=== PATIENT | female | born 1980 | race Caucasian/White ===

== ENCOUNTER 2018-05-21 18:40 | Observation (INO) ==
[2018-05-21] MEDS ORDERED: LORazepam 2 MG/1 ML VIAL IV STA ×2 (19:15→20:53)
[2018-05-21] MEDS ORDERED: ONDANSETRON 4 MG/2 ML VIAL IV STA (19:15)
[2018-05-21] MEDS ORDERED: SODIUM CHLORIDE 0.9% 1,000 ML IV STA (19:15)
[2018-05-21 20:13] LABS: Basophils % 0.2 % (0.0-0.8); Eosinophils % 0.1 % (0.00-10.9); Hematocrit 41.1 VOL% (35.7-47.0); Hemoglobin 13.8 GM/DL (12.0-16.0); Immature Granulocytes % 0.5 %; Immature Granulocytes Absolute 0.05 #; Lymphocytes # 0.2 10*3/uL (1.4-4.0); Lymphocytes % 2.2 % (21.3-54.2); Mean Corpuscular HGB Conc 33.6 GM/DL (32-36); Mean Corpuscular Hemoglobin 30 PG (27-34); Mean Corpuscular Volume 88.8 FL (87-102); Mean Platelet Volume 10.3 FL (9.6-12.0); Monocytes # 0.4 10*3/uL (0.11-0.8); Monocytes % 3.5 % (1.7-12.7); Neutrophils # 10.3 10*3/uL (1.4-7.4); Neutrophils % 93.5 % (38.7-73.9); Platelet Count 201 T/CUMM (130-400); Red Blood Count 4.63 MC/CUMM (3.8-5.5)
[2018-05-21 20:30] LABS: Calcium 8.1 MG/DL (8.5-10.1)
[2018-05-21 20:31] LABS: Bilirubin,Total 1.6 MG/DL (0.2-1.0); Osmolality,Calculated 283.3 MOS/KG (273-304); Potassium 3.5 MMOL/L (3.5-5.1)
[2018-05-21 20:36] LABS: Apearance,Urine CLEAR (Clear); Bacteria,Urine Occasional /HPF (Few); Bilirubin,Urine Negative (Negative); Blood, Urine Small mg/dL (Negative); Glucose,Urine (UA) Negative (Negative); Ketones,Urine 80 mg/dL (Negative); Mucus,Urine Occasional /LPF (Occasional); Nitrite,Urine Negative (Negative); Protein,Urine Negative; RBC,Urine 2 /HPF (0-4); Squamous Epithelial Cell,Urine Occasional /HPF (0-10); Urine Color Yellow (Yellow); Urine Specific Gravity 1.019 (1.001-1.035); Urine Urobilinogen < 2.0 EU/DL (0.2-1.0); WBC,Urine 1 /HPF (0-6)
[2018-05-21 20:38] LABS: Barbiturates Screen,Urine Negative (Negative); Benzodiazepines Screen,Urine Negative (Negative); Cannabinoid Screen,Urine Negative (Negative); Opiate Screen,Urine Negative (Negative); Phencyclidine Screen,Urine Negative (Negative)
[2018-05-21] MEDS ORDERED: MORPHINE 4 MG/1 ML VIAL IV STA (20:53)
[2018-05-21 20:57] LABS: Band Neutrophils 1 % (0-10); Lymphocytes 2 % (20-55); Segmented Neutrophils 97 % (50-85); Total Cells Counted 100
[2018-05-21 20:58] LABS: Platelet Estimate Adequate
[2018-05-21] MEDS ORDERED: MAGNESIUM SULF RIDER 4 GM in PREMIX 1 EACH IV PRN (22:42)
[2018-05-21] MEDS ORDERED: MAGNESIUM SULF RIDER 2 GM in PREMIX 1 EACH IV PRN (22:42)
[2018-05-21] MEDS ORDERED: ACETAMINOPHEN 325 MG TABLET PO PRN (22:54)
[2018-05-21] MEDS ORDERED: PROMETHAZINE 25 MG TABLET PO PRN (22:54)
[2018-05-21] MEDS ORDERED: LORazepam 2 MG/1 ML VIAL IV PRN ×2 (22:56→23:02)
[2018-05-22] MEDS ORDERED: FLUoxetine 10 MG CAPSULE PO SCH (00:33)
[2018-05-22] MEDS: SODIUM CHLORIDE 0.9% 1,000 ML IV SCH ×3 (00:46→20:38)
[2018-05-22] MEDS: ENOXAPARIN 40 MG/0.4 ML SYRINGE SUBCUT SCH ×2 (00:49→20:39)
[2018-05-22] MEDS: ZALEPLON 5 MG CAPSULE PO PRN ×2 (00:56→21:19)
[2018-05-22 04:31] LABS: Basophils % 0.3 % (0.0-0.8); Hematocrit 37.8 VOL% (35.7-47.0); Hemoglobin 12.4 GM/DL (12.0-16.0); Immature Granulocytes % 0.3 %; Immature Granulocytes Absolute 0.02 #; Lymphocytes # 0.3 10*3/uL (1.4-4.0); Lymphocytes % 4.1 % (21.3-54.2); Mean Corpuscular HGB Conc 32.8 GM/DL (32-36); Mean Corpuscular Hemoglobin 30 PG (27-34); Mean Corpuscular Volume 90.2 FL (87-102); Mean Platelet Volume 10.9 FL (9.6-12.0); Monocytes # 0.3 10*3/uL (0.11-0.8); Monocytes % 3.4 % (1.7-12.7); Neutrophils % 91.9 % (38.7-73.9); Platelet Count 190 T/CUMM (130-400); Red Blood Count 4.19 MC/CUMM (3.8-5.5); Red Cell Distribution Width 12.1 % (9.3-17.3); White Blood Count 7.6 T/CUMM (4-12)
[2018-05-22 04:50] LABS: Albumin 3.4 G/DL (3.4-5.0); Bilirubin,Total 1.9 MG/DL (0.2-1.0); Calcium 7.8 MG/DL (8.5-10.1); Osmolality,Calculated 277.5 MOS/KG (273-304); Potassium 3.2 MMOL/L (3.5-5.1); Total Protein 6.4 G/DL (6.4-8.3)
[2018-05-22 05:29] LABS: Anisocytosis 1+; Band Neutrophils 5 % (0-10); Lymphocytes 5 % (20-55); Platelet Estimate Adequate; Segmented Neutrophils 89 % (50-85); Total Cells Counted 100
[2018-05-22] MEDS: POTASSIUM CHLORIDE 20 MEQ TABLET PO PRN ×4 (11:47→18:34)
[2018-05-22] MEDS: CYANOCOBALAMIN 1000 MCG/1 ML VIAL IM SCH (12:37)
[2018-05-22] MEDS: PANTOPRAZOLE 40 MG TABLET PO SCH (14:49)
[2018-05-23] MEDS: SODIUM CHLORIDE 0.9% 1,000 ML IV SCH ×2 (04:50→15:10)
[2018-05-23 06:02] LABS: Calcium 7.5 MG/DL (8.5-10.1); Osmolality,Calculated 277.3 MOS/KG (273-304); Potassium 3.8 MMOL/L (3.5-5.1)
[2018-05-23] MEDS: PANTOPRAZOLE 40 MG TABLET PO SCH (09:29)
[2018-05-23] MEDS: CYANOCOBALAMIN 1000 MCG/1 ML VIAL IM SCH (09:31)
[2018-05-23] MEDS ORDERED: SUCRALFATE 1 GM TABLET PO SCH (16:30)
[2018-05-23 17:06] VITALS: BP 115/88
== END 2018-05-23 17:19 | disposition home or self-care (01) ==
LOC: EDBD → EDUNIT# → N.EDINP 18:40 → N.ED 18:40 → N.2E 23:34
PROVIDERS: ADMIT Internal Medicine; ATTEND Internal Medicine

== ENCOUNTER 2021-11-13 17:37 | Observation (INO) ==
[2021-11-13 18:15] LABS: Basophils % 0.9 % (0.0-0.8); Eosinophils % 0.4 % (0.00-10.9); Hematocrit 42.5 VOL% (35.7-47.0); Hemoglobin 14.4 GM/DL (12.0-16.0); Immature Granulocytes % 0.2 %; Immature Granulocytes Absolute 0.01 #; Lymphocytes # 1.6 10*3/uL (1.4-4.0); Lymphocytes % 33.4 % (21.3-54.2); Mean Corpuscular HGB Conc 33.9 GM/DL (32-36); Mean Corpuscular Volume 89.3 FL (87-102); Mean Platelet Volume 10.4 FL (9.6-12.0); Monocytes # 0.3 10*3/uL (0.11-0.8); Monocytes % 6.8 % (1.7-12.7); Neutrophils % 58.3 % (38.7-73.9); Platelet Count 273 T/CUMM (130-400); Red Blood Count 4.76 MC/CUMM (3.8-5.5); Red Cell Distribution Width 11.9 % (9.3-17.3); White Blood Count 4.7 T/CUMM (4-12)
[2021-11-13 18:34] LABS: Albumin 4.5 G/DL (3.4-5.0); Bilirubin,Total 0.8 MG/DL (0.20-1.00); Calcium 10.1 MG/DL (8.5-10.1); Osmolality,Calculated 270.8 MOS/KG (273-304); Potassium 3.2 MMOL/L (3.5-5.1); Total Protein 8.1 G/DL (6.4-8.2)
[2021-11-13] MEDS ORDERED: ACETAMINOPHEN 325 MG TABLET PO PRN (19:00)
[2021-11-13] MEDS ORDERED: POTASSIUM CHLORIDE 20 MEQ TABLET PO ONE (20:00)
[2021-11-13] MEDS ORDERED: ENOXAPARIN 40 MG/0.4 ML SYRINGE SUBCUT SCH (21:00)
[2021-11-13] MEDS ORDERED: CETIRIZINE 10 MG TABLET PO SCH (22:30)
[2021-11-13] MEDS ORDERED: MULTIVITAMIN (CENTRUM) TABLET PO SCH (22:30)
[2021-11-13] MEDS: FAMOTIDINE 20 MG TABLET PO SCH (22:31)
[2021-11-14 06:42] LABS: Albumin 3.7 G/DL (3.4-5.0); Bilirubin,Total 0.8 MG/DL (0.20-1.00); Calcium 9.5 MG/DL (8.5-10.1); Osmolality,Calculated 276.4 MOS/KG (273-304); Potassium 4.2 MMOL/L (3.5-5.1); Risk Ratio 2.86; Total Protein 7.2 G/DL (6.4-8.2); VLDL Cholesterol 14.2 MG/DL
[2021-11-14 08:59] LABS: Free T4 (Free Thyroxine) 1.14 NG/DL (0.76-1.46); Thyroid Stimulating Hormone 1.61 uIU/ml (0.358-3.74)
[2021-11-14] MEDS ORDERED: PANTOPRAZOLE 40 MG TABLET PO SCH (09:00)
[2021-11-14] MEDS: FAMOTIDINE 20 MG TABLET PO SCH (09:11)
[2021-11-14 11:37] VITALS: BP 115/80
[2021-11-16] MEDS ORDERED: ERGOCALCIFEROL 50,000 UNIT CAPSULE PO SCH (09:00)
[2021-11-25] MEDS ORDERED: CYANOCOBALAMIN 1000 MCG/1 ML VIAL IM SCH (09:00)
== END 2021-11-14 16:16 | disposition home or self-care (01) ==
LOC: N.ED 17:37 → N.EDINP 17:37 → SUATTDRO 19:00 → N.EDINP 20:11 → N.2W 20:33
PROVIDERS: ADMIT Hospitalist; ATTEND Internal Medicine